=== PATIENT | female | born 1990 | race Caucasian/White ===

== ENCOUNTER → 2021-10-30 10:32 | Outpatient (CLI) | payer OTHER, SELFPAY ==
[2021-10-30 11:12] LABS: Add Manual Diff / Slide Review NO; Basophils Absolute Auto 0 /uL (0-100); Basophils Percent Auto 0.9 % (0-2); Eosinophils Absolute Auto 0 /uL (0-450); Eosinophils Percent Auto 1.2 % (2-4); Hematocrit 36.1 % (36-46); Hemoglobin 12.2 g/dL (12.0-16.0); Lymphocytes Absolute Auto 1100 /uL (1100-4500); Lymphocytes Percent Auto 27.1 % (25-40); Mean Corpuscular HGB Conc 33.8 % (30-36); Mean Corpuscular Hemoglobin 32.6 PG (26-34); Mean Corpuscular Volume 96.3 fL (80-100); Monocytes Absolute Auto 200 /uL (0-900); Monocytes Percent Auto 5.2 % (3-14); Neutrophils Absolute Auto 2800 /uL (1500-7000); Neutrophils Percent Auto 65.6 % (50-75); Platelet Count 225 X10^3/uL (150-400); Red Blood Cell Count 3.75 X10^6/uL (4.0-5.2); Red Cell Distribution Width 13.2 % (11.6-14.8); White Blood Cell Count 4.2 X10^3/uL (4.5-11.0)
[2021-10-30 12:02] LABS: Appearance Urine UA CLEAR; Bilirubin Urine UA NEGATIVE (NEGATIVE); Color Urine UA YELLOW; Glucose Urine UA TRACE g/dL (Negative); Ketones Urine UA TRACE (NEGATIVE); Leukocyte Esterase Urine UA TRACE (NEGATIVE); Nitrite Urine UA NEGATIVE (Negative); Occult Blood Urine UA TRACE-INTACT (Negative); Protein Urine UA 1+ (Negative); Urobilinogen Urine UA 0.2 E.U./dL (0.2)
[2021-10-30 12:26] LABS: Bacteria Urine Moderate (10-30); Culture Indicated Urine Cult Not Indicated; Mucus Urine 2+ (Negative); RBC Urine 1-5/HPF (0-5/HPF); Squamous Epithelial Cell Urine 5-10 /HPF (0-5/HPF); WBC Urine 0-1/HPF (0-5/HPF)
== END ==
PROVIDERS: PCP Family Medicine; Referring Provider Family Medicine; Visit Provider Family Medicine
DX: R39.198 Other difficulties with micturition (principal); R59.9 Enlarged lymph nodes, unspecified
CPT/HCPCS: 36415; 81001; 85025

== ENCOUNTER → 2021-11-27 09:30 | Outpatient (CLI) | payer OTHER, SELFPAY ==
[2021-11-27 10:32] LABS: Appearance Urine UA CLEAR; Bilirubin Urine UA 1+ (NEGATIVE); Color Urine UA YELLOW; Glucose Urine UA NEGATIVE (Negative); Ketones Urine UA TRACE (NEGATIVE); Leukocyte Esterase Urine UA NEGATIVE (NEGATIVE); Nitrite Urine UA NEGATIVE (Negative); Occult Blood Urine UA NEGATIVE (Negative); Protein Urine UA 1+ (Negative); Specific Gravity Urine UA >=1.030 (1.000-1.035); Urobilinogen Urine UA 0.2 E.U./dL (0.2)
[2021-11-27 10:34] LABS: pH Urine UA 5.5 (4.5-8.0)
[2021-11-27 10:36] LABS: Ictotest Urine Negative (Negative)
[2021-11-27 10:37] LABS: Bacteria Urine None Seen; Culture Indicated Urine Cult Not Indicated; Mucus Urine 3+ (Negative); RBC Urine None Seen (0-5/HPF); WBC Urine None Seen (0-5/HPF)
== END ==
PROVIDERS: PCP Family Medicine; Referring Provider Family Medicine; Visit Provider Family Medicine
DX: R39.198 Other difficulties with micturition (principal)
CPT/HCPCS: 81001

== ENCOUNTER → 2022-06-08 10:50 | Outpatient (CLI) | payer OTHER, SELFPAY ==
--- NOTE | 2022-06-08 10:51 | DI.MRI.S_ITS ---
PROCEDURE: MR TMJ WO CON INDICATIONS: eval TMJ TECHNIQUE: Axial T1 spin echo, coronal and sagittal PD fast spin echo through the temporomandibular joints, in both the closed- and open-mouth positions. COMPARISON: None. FINDINGS: Image quality: Excellent. Right: Joint is normally aligned on closed and open-mouth positioning. Articular disk demonstrates normal location and morphology. No bony erosions or osteophytes. Left: Joint is normally aligned on closed and open-mouth positioning. Articular disk demonstrates normal location and morphology. No bony erosions or osteophytes. IMPRESSION: TMJ study within normal limits. Dictated by: Andrew Costello M.D. on 06/09/2022 at 9:20 Approved by: Andrew Costello M.D. on 06/09/2022 at 9:23
== END ==
PROVIDERS: PCP Pediatrics; Referring Provider Family Medicine; Visit Provider Family Medicine
DX: S03.00XA Dislocation of jaw, unspecified side, initial encounter (principal)
CPT/HCPCS: 70336

== ENCOUNTER → 2022-08-20 15:51 | Outpatient (CLI) | payer OTHER, SELFPAY ==
[2022-08-20 17:42] LABS: Add Manual Diff / Slide Review NO; Basophils Absolute Auto 0 /uL (0-100); Basophils Percent Auto 0.3 % (0-2); Eosinophils Absolute Auto 100 /uL (0-450); Eosinophils Percent Auto 0.6 % (2-4); Hematocrit 37.2 % (36-46); Hemoglobin 13.1 g/dL (12.0-16.0); Lymphocytes Absolute Auto 1500 /uL (1100-4500); Lymphocytes Percent Auto 12.2 % (25-40); Mean Corpuscular HGB Conc 35.1 % (30-36); Mean Corpuscular Hemoglobin 33.5 PG (26-34); Mean Corpuscular Volume 95.5 fL (80-100); Monocytes Absolute Auto 500 /uL (0-900); Monocytes Percent Auto 4.1 % (3-14); Neutrophils Absolute Auto 10300 /uL (1500-7000); Neutrophils Percent Auto 82.8 % (50-75); Platelet Count 286 X10^3/uL (150-400); White Blood Cell Count 12.4 X10^3/uL (4.5-11.0)
[2022-08-20 18:47] LABS: HCG Quantitative /Beta subunit 219420 mIU/mL
[2022-08-22 10:08] LABS: Varicella IgG Antibody 1675 index (Immune >165)
[2022-08-22 20:45] LABS: HIV 1 & 2 Ab/Ag 4th Gen Combo NEGATIVE (NEGATIVE); Hep C Virus Ab w/Reflex Quant NEGATIVE s/c (NEGATIVE); Hepatitis B Surface Antigen NEGATIVE s/c (NEGATIVE); Rubella Antibody IgG 13.8 IU/mL (>15)
[2022-08-23 04:19] LABS: RPR Screen Non Reactive (Non Reactive)
== END ==
PROVIDERS: PCP Family Medicine; Referring Provider Obstetrics & Gynecology; Visit Provider Obstetrics & Gynecology
DX: O20.9 Hemorrhage in early pregnancy, unspecified (principal)
CPT/HCPCS: 36415; 80055; 84702; 86787; 86803; 86850; 86900; 86901; 87389

== ENCOUNTER → 2022-08-22 10:06 | Outpatient (CLI) | payer OTHER, SELFPAY ==
[2022-08-22 13:50] LABS: HCG Quantitative /Beta subunit 215880 mIU/mL
== END ==
PROVIDERS: PCP Family Medicine; Referring Provider Obstetrics & Gynecology; Visit Provider Obstetrics & Gynecology
DX: O20.9 Hemorrhage in early pregnancy, unspecified (principal)
CPT/HCPCS: 36415; 84702

== ENCOUNTER → 2022-09-04 13:48 | Outpatient (CLI) | payer OTHER, SELFPAY ==
[2022-09-04 19:20] LABS: Appearance Urine UA CLEAR; Bilirubin Urine UA NEGATIVE (NEGATIVE); Color Urine UA YELLOW; Glucose Urine UA NEGATIVE (Negative); Ketones Urine UA NEGATIVE (NEGATIVE); Leukocyte Esterase Urine UA TRACE (NEGATIVE); Nitrite Urine UA NEGATIVE (Negative); Occult Blood Urine UA TRACE-INTACT (Negative); Protein Urine UA NEGATIVE (Negative); Specific Gravity Urine UA 1.025 (1.000-1.035); Urobilinogen Urine UA 0.2 E.U./dL (0.2)
[2022-09-04 20:33] LABS: RBC Urine 0-1/HPF (0-5/HPF); Squamous Epithelial Cell Urine 0-1 /HPF (0-5/HPF); WBC Urine 0-1/HPF (0-5/HPF)
[2022-09-04 20:34] LABS: Amorphous Sediment Urine 1+; Bacteria Urine Occasional (0-1); Calcium Oxalate Crystals Urine Few
== END ==
PROVIDERS: PCP Family Medicine; Visit Provider Obstetrics & Gynecology
DX: Z34.81 Encounter for supervision of other normal pregnancy, first trimester (principal)
CPT/HCPCS: 81003; 81015; 87086

== ENCOUNTER → 2022-09-04 14:14 | Outpatient (CLI) | payer OTHER, SELFPAY | PROVIDERS: PCP Family Medicine; Referring Provider Obstetrics & Gynecology; Visit Provider Obstetrics & Gynecology | DX: Z34.81 Encounter for supervision of other normal pregnancy, first trimester (principal) | CPT/HCPCS: 36415; 81003; 81015; 87086 ==

== ENCOUNTER → 2022-11-04 11:29 | Outpatient (CLI) | payer OTHER, SELFPAY ==
[2022-11-06 20:59] LABS: AFP Value 108.5 ng/mL (.); Insulin Dep Diabetes No (.); OSBR Risk 1IN 2047 (.); Results Report (.); Test Results *Screen Negative* (.)
== END ==
PROVIDERS: PCP Family Medicine; Referring Provider Obstetrics & Gynecology; Visit Provider Obstetrics & Gynecology
DX: Z34.02 Encounter for supervision of normal first pregnancy, second trimester (principal); Z3A.16 16 weeks gestation of pregnancy
CPT/HCPCS: 36415; 82105

== ENCOUNTER → 2022-11-07 06:46 | Outpatient (CLI) | payer OTHER, SELFPAY ==
--- NOTE | 2022-11-07 06:48 | DI.US.S_ITS ---
PROCEDURE: US OB >= 14 WEEKS FETUS INDICATIONS: 20 Week Anatomy Scan OUTSIDE/PRIOR DATING DATA: Last menstrual period (LMP): 06/17/2022. LMP-based estimated date of delivery (GERALDO): 03/24/2023. First dating scan (date and location): 09/04/2022. Estimated date of delivery (GERALDO) from first dating scan: 03/22/2023. The calculations are made using the clinical GERALDO of 03/24/2023. TECHNIQUE: Real-time scanning was performed of the fetus, with image documentation and biometric measurements. COMPARISON: [facility], , OB <= 14 WEEKS FETUS, 09/04/2022, 14:08. FINDINGS: General: A single living intrauterine gestation is present. Presentation: Vertex. Placenta: Placental position is anterior , without previa. Amniotic fluid index: 12.8 cm, normal range is 5-24 cm. Single deepest vertical pocket is 3.5 cm. heart rate: 152 beats per minute. Maternal cervical canal: 3.5 cm long. Normal lower limit is 2.5 cm. biometrics: Biparietal diameter: 4.3 cm 19 weeks 1 day Head circumference: 17.5 cm 20 weeks 0 days Abdominal circumference: 14.8 cm 20 weeks 1 day Femur length: 3.1 cm 19 weeks 5 days Clinically estimated gestational age: 20 weeks 3 days Composite gestational age from present scan: 19 weeks 5 days Estimated weight and percentile: 319 g, 19th percentile Anatomic survey: Neuro: Ventricles are non-dilated at less than 10 mm. Cisterna magna is normal at 3-11 mm. Cerebellum is normal in size and morphology. Nuchal skin fold: Normal at less than 6 mm between 14-21 weeks gestational age. Face: Nose and lips, facial profile are normal. Spine: No evidence for spina bifida. Heart: 4-chambered heart is present, with normal ventricular outflow tracts. Diaphragm: Diaphragm is intact. Stomach: Left-sided stomach is present. Kidneys: No hydronephrosis. Normal is less than 5 mm in 2nd trimester, less than 7 mm in 3rd trimester. Cord: 3-vessel cord has orthotopic insertion. Bladder: Normal in size. Extremities: All 4 extremities identified. IMPRESSION: Single live intrauterine with clinically estimated gestational age of 20 weeks 3 days. Anatomy is within normal limits. We strive to produce accurate, complete, and clear reports of imaging services. To assist us in improving patient care, this report was composed using standard report templates and voice recognition software. Therefore, it may contain abnormal punctuation, insertions and/or omissions. Occasional wrong-word or sound-alike substitutions may occur. Though we review the report and make efforts to correct it, we do recommend that the report be read carefully in proper context to recognize any text inaccuracies. Dictated by: Monique Cross M.D. on 11/07/2022 at 12:28 Approved by: Monique Cross M.D. on 11/07/2022 at 12:34
--- NOTE | 2022-11-07 06:48 | DI.US.S_ITS ---
ULTRASOUND OF RIGHT AXILLA: 11/07/2022 CLINICAL: Right axillary lump x 6 months. Small prior to , larger now at 20wks gest. No prior exams were available for comparison. Color flow and real-time ultrasound of the right axilla were performed. Gard[place] scale images of the real-time examination were reviewed. No significant abnormalities were seen sonographically in the right axilla. IMPRESSION: NEGATIVE There is no sonographic evidence of malignancy. No mass or other abnormality demonstrated in the right axillary region of palpable concern. Clinical management is recommended. Precautionary post- follow-up could be obtained if the palpable abnormality persists. This exam was interpreted at Station ID: [id number]. Electronically Signed By: Edwin Casillas M.D. jr/:11/07/2022 08:21:15 letter sent: Normal Exam Ultrasound BI-RADS: 1 Negative
== END ==
PROVIDERS: PCP Family Medicine; Referring Provider Physician Assistant Medical; Visit Provider Physician Assistant Medical
DX: Z36.89 Encounter for other specified antenatal screening (principal); O99.891 Other specified diseases and conditions complicating pregnancy; R22.31 Localized swelling, mass and lump, right upper limb; Z3A.19 19 weeks gestation of pregnancy
CPT/HCPCS: 76811; 76882

== ENCOUNTER → 2022-12-30 09:21 | Outpatient (CLI) | payer OTHER, SELFPAY ==
[2022-12-30 10:53] LABS: Hematocrit 32.4 % (36-46); Hemoglobin 11.2 g/dL (12.0-16.0)
[2022-12-30 12:41] LABS: GTT (PREG) 1 Hour PP 50gm Dose 103 mg/dL (76-139)
== END ==
PROVIDERS: PCP Family Medicine; Referring Provider Obstetrics & Gynecology; Visit Provider Obstetrics & Gynecology
DX: Z34.82 Encounter for supervision of other normal pregnancy, second trimester (principal); Z3A.26 26 weeks gestation of pregnancy
CPT/HCPCS: 36415; 82950; 85014; 85018

== ENCOUNTER → 2023-03-04 12:00 | Outpatient (CLI) | payer OTHER, SELFPAY ==
[2023-03-05 08:06] LABS: Strep Grp B PCR NEG for Grp B Strep
== END ==
PROVIDERS: PCP Family Medicine; Visit Provider Obstetrics & Gynecology
DX: Z34.83 Encounter for supervision of other normal pregnancy, third trimester (principal); Z3A.37 37 weeks gestation of pregnancy
CPT/HCPCS: 87653

== ENCOUNTER 2023-03-14 13:14 | Inpatient (IN) | payer OTHER, SELFPAY ==
[2023-03-14 13:58] LABS: Add Manual Diff / Slide Review NO; Basophils Absolute Auto 100 /uL (0-100); Basophils Percent Auto 0.6 % (0-2); Eosinophils Absolute Auto 100 /uL (0-450); Eosinophils Percent Auto 0.6 % (2-4); Hematocrit 35.7 % (36-46); Hemoglobin 12.1 g/dL (12.0-16.0); Lymphocytes Absolute Auto 2200 /uL (1100-4500); Lymphocytes Percent Auto 17.8 % (25-40); Mean Corpuscular HGB Conc 33.9 % (30-36); Mean Corpuscular Hemoglobin 32.4 PG (26-34); Mean Corpuscular Volume 95.7 fL (80-100); Monocytes Absolute Auto 600 /uL (0-900); Monocytes Percent Auto 5.1 % (3-14); Neutrophils Absolute Auto 9300 /uL (1500-7000); Neutrophils Percent Auto 75.9 % (50-75); Platelet Count 315 X10^3/uL (150-400); Red Blood Cell Count 3.73 X10^6/uL (4.0-5.2); White Blood Cell Count 12.3 X10^3/uL (4.5-11.0)
--- NOTE | 2023-03-14 14:38 | PM.ANES.PR ---
Operative Date/Time/Diagnoses Date of procedure: 03/14/23 Time of procedure: 14:00 Pre-op diagnosis: labor pain
--- NOTE | 2023-03-14 14:38 | PM.AN.REGBLK ---
Regional Block Pre-procedure Procedure: Continuous Lumbar Epidural for L&D PMH/ROS narrative: Exam narrative: WNL Labs: Hct 35.7 % (36-46) L 03/14/23 13:40 Plt Count 315 X10^3/uL (150-400) 03/14/23 13:40 Medications: Current Medications Generic Name Dose Route Start Last Admin Trade Name Freq PRN Reason Stop Dose Admin Calcium Carbonate 1,000 mg 03/14/23 13:50 Calcium Carbonate 500 Mg Tab PO Q4HR PRN Dyspepsia Carboprost Tromethamine 250 mcg 03/14/23 13:50 Carboprost 250 Mcg/Ml Ampul IM Q90M PRN Bleeding Diphenhydramine HCl 25 mg 03/14/23 14:36 Diphenhydramine 50 Mg/Ml Vial IV Q10M PRN Pruritis Ephedrine Sulfate 10 mg 03/14/23 14:37 Ephedrine 50 Mg/Ml Vial IV 03/14/23 14:38 NOW ONE Fentanyl 50 mcg 03/14/23 13:50 Fentanyl 100 Mcg/2 Ml Inj IV Q1H PRN Pain, Moderate (4-6) Oxytocin/Lactated Ringer's 30 unit in 500 mls @ 200 mls/hr 03/14/23 13:50 Oxytocin Premix IV CONT PRN Bleeding Protocol Tranexamic Acid 1,000 mg/ 100 mls @ 200 mls/hr 03/14/23 13:50 Sodium Chloride IV NOW PRN Bleeding Lactated Ringer's 1,000 mls @ 100 mls/hr 03/14/23 14:00 Lactated Ringers IV CONT LAURENT FENT 2MCG/ML BUPIV 0.125% EPI 200 mcg in 100 mls @ 12 mls/hr 03/14/23 14:45 Fentanyl/Bupiv/Ns 2mcg/Ml - 0.125% EPIDURAL CONT LAURENT Lidocaine HCl 20 ml 03/14/23 13:50 Lidocaine 1% 20 Ml INJ INTRA-OP PRN Post Delivery Methylergonovine Maleate 0.2 mg 03/14/23 13:50 Methylergonovine 0.2 Mg Tablet PO Q6HR PRN Heavy Bleeding Methylergonovine Maleate 0.2 mg 03/14/23 13:50 Methylergonovine 0.2 Mg/Ml Vial IM NOW PRN Bleeding Misoprostol 800 mcg 03/14/23 13:50 Misoprostol 200 Mcg Tablet NC NOW PRN Bleeding Misoprostol 400 mcg 03/14/23 13:50 Misoprostol 200 Mcg Tablet SL NOW PRN Bleeding Nalbuphine HCl 2.5 mg 03/14/23 14:36 Nalbuphine 20 Mg/Ml Ampul IV Q10M PRN Pruritis Naloxone HCl 0.2 mg 03/14/23 13:50 Naloxone 0.4 Mg/Ml Vial IV Q2MIN PRN Opiate Reversal Ondansetron HCl 4 mg 03/14/23 13:50 Ondansetron 4 Mg/2 Ml Inj IV Q4HR PRN Nausea And Vomiting Oxytocin 10 unit 03/14/23 13:50 Oxytocin 10 Unit/Ml Vial IM NOW PRN Bleeding Allergies: Allergies Allergy/AdvReac Type Severity Reaction Status Date / Time No Known Drug Allergies Allergy Verified 03/12/23 14:46 Procedure Insertion date: 03/14/23 Insertion time: 14:15 Prep/Local: betadine x3 Interspace: L4-5 Patient position: sitting Needle: 18 gauge Brent Loss of resistance with: air LAN at (cm): 8 Catheter placed at SKIN (cm): 13 Catheter in SPACE (cm): 5 Initial Medications TEST DOSE time: 14:18 BOLUS DOSE time: 14:15 BOLUS DOSE (mL): 10 BOLUS DOSE med: 0.25% bupivacaine (Also fentanyl 100ml) Infusion INFUSION: 0.125% bupivacaine and with fentanyl 2 mcg/mL Initial rate (mL/hr): 12 Post-procedure Anesthesia time START: 13:57
[2023-03-14] MEDS: LACTATED RINGERS 1,000 ML 100 ML IV (14:45)
[2023-03-14 15:52] VITALS: BP 129/85
[2023-03-14] MEDS: OXYTOCIN PREMIX 30 UNIT/500 ML PLAST..BAG 200 UNIT IV (16:16)
--- NOTE | 2023-03-14 16:36 | P.HPOB_ITS ---
OB HPI Date/Time Date of admission: 03/14/23 Date Patient Seen: 03/14/23 Time Patient Seen: 16:36 History of Present Condition Chief complaint: OB CHECK GERALDO Calculator Estimated Delivery Date Method Current WG Current Estimate 03/24/23 LMP (Certain) 38w 4d Other Estimates 03/22/23 Ultrasound #1 38w 6d Estimated Gestational Age (weeks): 38+4 : 3 Para: 1 care: good care, initiated at week # (11), number of visits (10) and pounds weight gain (42) Dating criteria OB: LMP confirmed by 1st trimester US Ultrasounds: normal 1st trimester US and normal mid trimester US Obstetrical complications: other (First trimester bleed) Medical complications OB: none Preadmission Labs Last OB Lab Results: Blood Type A Positive 03/14/23 13:40 Antibody Screen Negative 03/14/23 13:40 Hematocrit 35.7 % (36-46) L 03/14/23 13:40 Hemoglobin 12.1 g/dL (12.0-16.0) 03/14/23 13:40 Hepatitis B Surface Antigen Negative s/c (NEGATIVE) 08/20/22 15 :54 Hepatitis C Antibody Negative s/c (NEGATIVE) 08/20/22 15:54 Rubella Antibody 13.8 IU/mL (>15) L 08/20/22 15:54 Varicella-Zoster IgG Antibody 1675 index (Immune >165) 08/20/22 15:54 Glucose 1 Hour 103 mg/dL (76-139) 12/30/22 09:30 Group B Streptococcus (PCR) Neg for grp b strep 03/04/23 12:00 -: Chlamydia screen: negative and Urine: negative -: PAP smear: Normal Genetic Screens: Cell-free DNA: Normal (nl female) and Alpha-fetoprotein: Normal External Labs -: Urine: negative Prior (ies) Past Pregnancies Del. Date GA/Weeks Labor Lgth Wt Sex Route Outcome Anesthesia Place Delv Breastfeed Preg Comp Name 01/26/19 6 spontaneous 03/29/20 38 5 5 lb 7 oz Female vaginal live - full simon [facility] 10 months [address] [place] Delivery Date: 01/26/19 Last Updated by: Bernadette Del Rosario RN Missed AB discovered ~8 wk, D&C @10 wk Delivery Date: 03/29/20 Last Updated by: Bernadette Del Rosario RN accessory placental lobe Evaluation Evaluation Baseline heart rate: 130 Variability: Average (6-10) monitor accelerations: Present Monitor Decelerations: Variable Contraction Frequency (minutes): 3 Uterine Contraction Intensity: Strong/Firm Status: Category ll Dilation (cm): 10 Effacement (%): 100 station: +2 [facility] Medical History (Updated 02/18/23 @ 15:50 by Fany Corbett MD) Abnormal Pap smear of cervix (~2011) Allergies (~1999) Anxiety (~1996) Chicken pox (~1992) Collar bone fracture (~2004) Cyclic vomiting syndrome Depression (~2005) Frequent UTI (~2007) Gastritis (~2014) Herpes simplex type 1 infection (~2011) Kidney infection (~2014) Migraines (~2001) Mixed anxiety and depressive disorder PTSD (post-traumatic stress disorder) Vertigo (~2017) Surgical History Anesthesia History of endoscopy [place] teeth removed (~2007) Family History (Updated 08/12/22 @ 15:21 by Bernadette Del Rosario RN) Father Hypertension Hyperlipidemia History of heart disease Mother Thyroid disease Grandfather History of heart disease Hyperlipidemia Hypertension COPD (chronic obstructive pulmonary disease) Congestive heart failure Heart attack Grandmother COPD (chronic obstructive pulmonary disease) Cyclic vomiting syndrome Grandfather History of heart disease Hyperlipidemia Hypertension Heart attack Grandmother Cancer Colon cancer Family/Other Brain cancer Social History marital status: number of children: 1 household members: spouse and children lives independently: Yes caregiver/support person: Yes housing: house pets and animals: Yes (2 dogs; aware of toxo precautions) education level: master's degree occupational status: unemployed current occupational exposures/hazards: No special margret needs: No travel history: over 6 months ago seatbelt use: always water heater temp set < 120 deg: Yes working smoke detector in home: Yes fire extinguisher in home: Yes carbon monox detector in home: Yes firearms in home: Yes firearms unloaded and locked: Yes do you feel safe at home: Yes Smoking Status: Never smoker Tobacco: How many years used: 3 second hand exposure: No alcohol intake: never substance use type: does not use during the past year weight has: remained stable well-balanced diet: daily or most days daily servings fruits/ve or more times/day caffeine: Yes (aware of 200mg limit) Type(s) of exercise: other and yoga frequency: 3-4 times per week Meds Home Medications and Allergies Home Medications Medication Instructions Recorded Confirmed Type promethazine 12.5 mg tablet 12.5 mg PO Q6H PRN per MD 10/07/21 03/14/23 History sumatriptan succinate 25 mg tablet See Rx Instructions PO .COMPLEX 10/07/21 03/14/23 Rx #30 tabs alprazolam 0.25 mg tablet (Xanax) 0.25 mg PO TID PRN anxiety #20 tabs 07/14/22 03/14/23 Rx ondansetron 4 mg disintegrating 4 mg PO Q6-8H PRN nausea and 08/04/22 03/14/23 Rx tablet vomiting #20 tabs prenat.vits,regis,rvk-vcsk-aovac 1 tab PO DAILY 08/12/22 03/14/23 History duloxetine 40 mg capsule,delayed 40 mg PO DAILY #90 caps 12/22/22 03/14/23 Rx release hydroxyzine HCl 25 mg tablet 25 mg PO BID PRN anxiety #30 tabs 12/22/22 03/14/23 Rx nortriptyline 50 mg capsule 100 mg PO DAILY #180 caps 12/22/22 03/14/23 Rx pantoprazole 40 mg tablet,delayed 40 mg PO DAILY #30 tabs 02/04/23 03/14/23 Rx release (Protonix) Allergies Allergy/AdvReac Type Severity Reaction Status Date / Time No Known Drug Allergies Allergy Verified 03/12/23 14:46 OB Exam Narrative Exam Narrative: Generally: Patient comfortable with epidural Fundal height: 39 cm Estimated weight: 7-1/2 lb Extremities: No edema Objective Labs 03/14/23 13:40 Labs: Laboratory Results - last 24 hr 03/14/23 03/14/23 13:40 13:40 WBC 12.3 H RBC 3.73 L Hgb 12.1 Hct 35.7 L MCV 95.7 MCH 32.4 MCHC 33.9 RDW 13.0 Plt Count 315 Neut % (Auto) 75.9 H Lymph % (Auto) 17.8 L [place] % (Auto) 5.1 Eos % (Auto) 0.6 L Baso % (Auto) 0.6 Neut # (Auto) 9300 H Lymph # (Auto) 2200 [place] # (Auto) 600 Eos # (Auto) 100 Baso # (Auto) 100 Blood Type A Positive Antibody Screen Negative Assessment and Plan Assessment and Plan Assessment and Plan narrative: Assessment: 32-year-old 3 para 1 at 38-,4/7 weeks gestation entering second stage of labor Comfortable with epidural Group B strep negative Plan: Begin pushing Expected management to spontaneous vaginal delivery Time Spent with Patient Total time spent with greater than 50% in coordination of care (as documented) at patient's floor/unit and/or counseling patient:: 25 - 35 minutes
--- NOTE | 2023-03-14 16:41 | PM.OBPRVD ---
Labor & Delivery Delivery date: 03/14/23 Intrapartal Events: Precipitous Labor < 3 hours and Intolerance (deep variable decelerations) Cervical ripening method: none Induction method: none Delivery monitor: external FHT and external uterine Route of delivery: vacuum extraction Indication for instrumentation: nonreassuring FHR tracing (deep variable decelerations) Episiotomy description: None L&D Laceration Description: None Quantitative Blood Loss: 100 Anesthesia Type: Epidural Complications: None Narrative: Patient complete and pushed with 2 contractions. At the end of the second contraction a vacuum was applied due to deep variable decelerations with pushing. With 1 pull the vertex delivered over an intact perineum in the [place] position, at 4:14 p.m.. A nuchal cord x1 was reduced on the perineum. The remainder of the body delivered without difficulty and was placed on mom's abdomen. Pitocin was given in the IV fluid. The cord was double clamped and cut after it stopped pulsing. Cord bloods were obtained. The placenta delivered intact with a three-vessel cord at 4:22 p.m.. Fundus was massaged to firm. The perineum and vagina were inspected and there were no lacerations. QBL 100 cc. Apgars 8 at 1 minute and 9 at 5 minutes. . Epidural analgesia. Mom and infant stable to recovery. [place] Baby 1: Infant gender: Female Presentation: vertex Position: Left Occiput Anterior Placenta delivery description: Spontaneous Cord Vessel Description: 3 Vessels, Nuchal Cord (x 1) and Reduced (on the perineum) score (1 min): 8 score (5 min): 9 weight: 7 lb 4 oz Plan for aftercare: Routine care
[2023-03-14] MEDS: LANOLIN OINT 7 GM 1 APPLIC TOP (21:54)
[2023-03-14] MEDS: DERMOPLAST SPRAY 20% 60 ML 1 SPRAY TOP (21:54)
[2023-03-14] MEDS: IBUPROFEN 600 MG TABLET PO (22:00)
[2023-03-15] MEDS: IBUPROFEN 600 MG TABLET PO ×2 (03:58→09:55)
[2023-03-15 06:11] LABS: Hemoglobin 10.8 g/dL (12.0-16.0)
--- NOTE | 2023-03-15 09:53 | PM.AN.REGBLK ---
Regional Block Pre-procedure Labs: Hct 31.0 % (36-46) L 03/15/23 06:00 Plt Count 315 X10^3/uL (150-400) 03/14/23 13:40 Medications: Current Medications Generic Name Dose Route Start Last Admin Trade Name Delfina PRN Reason Stop Dose Admin Acetaminophen 650 mg 03/14/23 18:23 Acetaminophen 325 Mg Tablet PO Q6HR PRN Pain, Mild (1-3) Benzocaine 1 spray 03/14/23 18:23 03/14/23 21:54 Dermoplast [place] 20% 60 Ml TOP 1 spray Q1HR PRN Administration perineal pain Carboprost Tromethamine 250 mcg 03/14/23 18:23 Carboprost 250 Mcg/Ml Ampul IM Q90MIN PRN Bleeding Docusate Sodium 100 mg 03/15/23 09:00 Docusate 100 Mg Capsule PO DAILY LAURENT Emollient Ointment 1 applic 03/14/23 18:23 03/14/23 21:54 Lanolin Oint 7 Gm TOP 1 applic PRN PRN Administration Tenderness Oxytocin/Lactated Ringer's 30 unit in 500 mls @ 200 mls/hr 03/14/23 18:23 Oxytocin Premix IV CONT PRN Bleeding Protocol Ibuprofen 600 mg 03/14/23 18:23 03/15/23 03:58 Ibuprofen 600 Mg Tablet PO 600 mg Q6HR PRN Administration Pain, Mild (1-3) Methylergonovine Maleate 0.2 mg 03/14/23 18:23 Methylergonovine 0.2 Mg/Ml Vial IM NOW PRN Bleeding Methylergonovine Maleate 0.2 mg 03/14/23 18:23 Methylergonovine 0.2 Mg Tablet PO Q6HR PRN Heavy bleeding Misoprostol 400 mcg 03/14/23 18:23 Misoprostol 200 Mcg Tablet SL NOW PRN Bleeding Misoprostol 1,000 mcg 03/14/23 18:23 Misoprostol 200 Mcg Tablet DE NOW PRN Bleeding Misoprostol 800 mcg 03/14/23 18:23 Misoprostol 200 Mcg Tablet DE NOW PRN Bleeding Naloxone HCl 0.2 mg 03/14/23 18:23 Naloxone 0.4 Mg/Ml Vial IV Q2MIN PRN Opiate Reversal Oxytocin 10 unit 03/14/23 18:23 Oxytocin 10 Unit/Ml Vial IM NOW PRN Bleeding Vit/Calcium/Iron/Folic Ac 1 tab 03/15/23 09:00 Vit,Calc/Iron/Folic 1 Tablet PO DAILY LAURENT Rho Immune Globulin 1,500 unit 03/14/23 18:23 Rho(D) Immune Globulin 1,500 Unit Syringe IM NOW PRN Mom Rh neg, Infant Rh pos Allergies: Allergies Allergy/AdvReac Type Severity Reaction Status Date / Time No Known Drug Allergies Allergy Verified 03/12/23 14:46 Post-procedure Anesthesia time END: 16:15 Post-procedure Anesthesia Assessment: Yes CV function: HR/BP stable, Yes Resp function: RR/sat/airway adequate, Yes Post-op hydration adequate, Yes Pain control adequate, Yes Nausea & vomiting absent, Yes Temperature > 36 C and Yes Mental status appropriate
[2023-03-15] MEDS: PRENATAL VIT,CALC/IRON/FOLIC 1 TABLET 1 TAB PO (09:55)
[2023-03-15 14:33] VITALS: BP 122/81; PULSE 100; RESP 14; TEMP 36.8
--- NOTE | 2023-03-21 20:25 | PM.OBDS.1 ---
Discharge Providers Provider Date of admission: 03/14/23 13:14 Discharge Date: 03/15/23 Primary care physician: Boogie Bradley MD Discharge provider: Paulette Walton MD Summary Hospital Course Date Patient Seen: 03/15/23 Time Patient Seen: 11:30 Diagnoses: 38-,4/7 weeks gestation Precipitous labor and delivery Epidural analgesia Spontaneous vaginal delivery Nuchal cord x1 Hospital Course: Patient is a 32-year-old 3 para 1 at 38-,4/7 weeks gestation who presented to labor and delivery on March 14, 2023 with spontaneous rupture of membranes and was 4 cm on admission. She received an epidural for pain management. She progressed to complete dilation and had a spontaneous vaginal delivery at 16: 14. Her course was unremarkable. She was discharged home on March 15, 2023. She will follow-up at 6 weeks. Peripartum Data Infant Delivery Method: Natural Vaginal Laceration Description: None Episiotomy description: None Procedures: Epidural analgesia Spontaneous vaginal delivery complications: none [place] 1: Gender: Female Disposition of : home Status at Discharge Cognitive/behavioral status at discharge: oriented Functional status at discharge: independent ambulation Overall status at discharge: patient is progressing back to baseline Time Spent with Patient Time attestation: Total time spent providing and/or coordinating discharge services: Time spent: Less than 30 minutes Objective Labs 03/15/23 06:00 Exam Narrative Exam Narrative: Generally: Patient is sitting up in bed, no acute distress Fundus: Firm at U -1 Extremities: Negative Homans, no edema Discharge Plan Discharge Plan Patient Disposition: Home Provider Discharge Comment: Call with fever, chills or bleeding vaginally more than a pad in an hour Continue vitamins Push oral fluids Ibuprofen 600mg every 6 hours as needed Discharge orders & Medications Prescriptions: Continued nortriptyline 50 mg capsule 100 mg PO DAILY Qty: 180 3RF hydroxyzine HCl 25 mg tablet 25 mg PO BID PRN (Reason: anxiety) Qty: 30 2RF duloxetine 40 mg capsule,delayed release(DR/EC) 40 mg PO DAILY Qty: 90 3RF prenat.vits,regis,fez-ihol-iinae Tablet 1 tab PO DAILY Discontinued alprazolam [Xanax] 0.25 mg tablet 0.25 mg PO TID PRN (Reason: anxiety) Qty: 20 0RF Hold Instructions: ondansetron 4 mg tablet,disintegrating 4 mg PO Q6-8H PRN (Reason: nausea and vomiting) Qty: 20 2RF pantoprazole [Protonix] 40 mg tablet,delayed release (DR/EC) 40 mg PO DAILY Qty: 30 3RF promethazine 12.5 mg tablet 12.5 mg PO Q6H PRN (Reason: per MD) sumatriptan succinate 25 mg tablet See Rx Instructions PO .COMPLEX Qty: 30 2RF Rx Instructions: take 1 tab at onset of headache; if no relief may repeat 1 tab after at least 2 hrs; max = 4 tabs/24 hr PO Follow up/Referrals: Paulette Walton MD [Physician] - Boogie Bradley MD [Primary Care Provider] - (6 week follow up. Please call Thursday to schedule.) Diet/Activity/Treatments Diet: Regular Activity: Nothing in the vagina for 6 weeks Skin/Wound/Dressing Care Report to your healthcare provider any signs of infection, such as:: chills, fever, increased pain and unusual drainage Visit Report/Discharge Packet Instructions: DI for Labor and Delivery, Vaginal , DI for Depression Stand Alone Forms: Patient Portal/API, Stroke Signs & Symptoms Discharge Data Primary Care Provider: Boogie Bradley Discharges patient from system. Discharge Date/Time: 03/15/23 13:57
== END 2023-03-15 13:57 | disposition home or self-care (01) | DRG 807 ==
PROVIDERS: Admitting Provider Obstetrics & Gynecology; PCP Family Medicine; Referring Provider Obstetrics & Gynecology; Visit Provider Obstetrics & Gynecology
DX: O62.3 Precipitate labor (principal); Z37.0 Single live birth; O76 Abnormality in fetal heart rate and rhythm complicating labor and delivery; Z3A.38 38 weeks gestation of pregnancy
CPT/HCPCS: 36415; 59050; 59400; 59409; 84112; 85014; 85018; 85025; 86850; 86900; 86901; G0378; G0379; J2590

== ENCOUNTER → 2023-06-22 15:30 | Outpatient (CLI) | payer OTHER, SELFPAY ==
[2023-06-22 15:45] LABS: Add Manual Diff / Slide Review NO; Basophils Absolute Auto 100 /uL (0-100); Basophils Percent Auto 1.3 % (0-2); Eosinophils Absolute Auto 100 /uL (0-450); Eosinophils Percent Auto 2.2 % (2-4); Hematocrit 35.8 % (36-46); Hemoglobin 12.3 g/dL (12.0-16.0); Lymphocytes Absolute Auto 1800 /uL (1100-4500); Lymphocytes Percent Auto 34.7 % (25-40); Mean Corpuscular HGB Conc 34.4 % (30-36); Mean Corpuscular Hemoglobin 32.7 PG (26-34); Mean Corpuscular Volume 95.2 fL (80-100); Monocytes Absolute Auto 300 /uL (0-900); Monocytes Percent Auto 6.4 % (3-14); Neutrophils Absolute Auto 2900 /uL (1500-7000); Neutrophils Percent Auto 55.4 % (50-75); Platelet Count 291 X10^3/uL (150-400); Red Blood Cell Count 3.76 X10^6/uL (4.0-5.2); White Blood Cell Count 5.2 X10^3/uL (4.5-11.0)
[2023-06-22 16:04] LABS: Alanine Aminotransferase 18 IU/L (<35); Albumin 4.4 g/dL (3.5-5.0); Albumin Globulin Ratio 1.6 (1.0-2.8); Alkaline Phosphatase 69 U/L (38-126); Aspartate Aminotransferase 24 IU/L (14-36); BUN Creatinine Ratio 16.9 (6-22); Bilirubin Total 0.2 mg/dL (0.2-1.3); Blood Urea Nitrogen 13 mg/dL (7-17); Calcium 9.2 mg/dL (8.4-10.2); Carbon Dioxide 29 mmol/L (22-32); Chloride 102 mmol/L (98-107); Estimated Glomerular Filt Rate > 60 mL/min (>60); Globulin 2.8 g/dL (1.7-4.1); Glucose 76 mg/dL (70-100); HEMOLYSIS < 15 (0-50); Sodium 139 mmol/L (137-145); Total Protein 7.2 g/dL (6.3-8.2)
[2023-06-22 16:35] LABS: TSH w/ Reflex to FT4 1.99 uIU/mL (0.47-4.68)
== END ==
PROVIDERS: PCP Family Medicine; Referring Provider Psychiatry & Neurology Psychiatry; Visit Provider Psychiatry & Neurology Psychiatry
DX: F43.10 Post-traumatic stress disorder, unspecified (principal); F41.0 Panic disorder [episodic paroxysmal anxiety]; F41.1 Generalized anxiety disorder; F33.41 Major depressive disorder, recurrent, in partial remission
CPT/HCPCS: 36415; 80053; 84443; 85025; 99214

== ENCOUNTER → 2024-08-04 15:11 | Outpatient (CLI) | payer OTHER, SELFPAY ==
--- NOTE | 2024-08-04 15:13 | DI.RAD.S_ITS ---
PROCEDURE: XR HAND RT MIN 3V INDICATIONS: bilateral hand and foot pain/swelling TECHNIQUE: 3 views of the hand(s) acquired. COMPARISON: None. FINDINGS: Bones: Ulnar minus anomaly noted. Joints: Mild degenerative change present in the STT and 1st CMC joints. The MCP and PIP joints show mild joint space narrowing and synovial swelling most prominent 2nd and 3rd MCP joint. There is also periarticular osteoporosis. Soft tissues: No soft tissue abnormality. 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 Please correlate with arthritic serologies Mild degeneration Dictated by: Jules Pruett M.D. on 08/05/2024 at 9:46 Approved by: Jules Pruett M.D. on 08/05/2024 at 9:48
--- NOTE | 2024-08-04 15:13 | DI.RAD.S_ITS ---
PROCEDURE: XR HAND LT MIN 3V INDICATIONS: bilateral hand and foot pain/swelling TECHNIQUE: 3 views of the hand(s) acquired. COMPARISON: None. FINDINGS: Bones: Ulnar minus anomaly noted. Joints: Mild degenerative change present distal radial ulnar, STT and 1st CMC joints. The MCP joints show joint space narrowing and mild synovial swelling most prominent in the 2nd MCP region. There is also minimal synovial swelling and joint space narrowing of the PIP joints. In addition, periarticular osteoporosis noted in all joints. Soft tissues: No soft tissue abnormality. 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 Please correlate with inflammatory serologies Degenerative change Ulnar minus variant Dictated by: Jules Pruett M.D. on 08/05/2024 at 9:44 Approved by: Jules Pruett M.D. on 08/05/2024 at 9:46
--- NOTE | 2024-08-04 15:13 | DI.RAD.S_ITS ---
PROCEDURE: XR FOOT LT MIN 3V INDICATIONS: bilateral hand and foot pain/swelling TECHNIQUE: 3 views of the foot were acquired. COMPARISON: None. FINDINGS: Bones: There are no osseous abnormalities Joints: The joint spaces are normal in width and alignment without arthritic change. Soft tissues: Mild diffuse soft swelling noted IMPRESSION: Mild diffuse soft tissue swelling Dictated by: Jules Pruett M.D. on 08/05/2024 at 9:52 Approved by: Jules Pruett M.D. on 08/05/2024 at 9:53
--- NOTE | 2024-08-04 15:13 | DI.RAD.S_ITS ---
PROCEDURE: XR FOOT RT MIN 3V INDICATIONS: bilateral hand and foot pain/swelling TECHNIQUE: 3 views of the foot were acquired. COMPARISON: None. FINDINGS: Bones: There are no osseous abnormalities Joints: The joint spaces are normal in width and alignment without arthritic change. Soft tissues: Mild diffuse soft swelling noted. IMPRESSION: Mild diffuse soft tissue swelling Dictated by: Jules Pruett M.D. on 08/05/2024 at 9:58 Approved by: Jules Prutet M.D. on 08/05/2024 at 9:59
[2024-08-04 16:32] LABS: C-Reactive Protein Quant < 0.5 mg/dL (<1.0)
[2024-08-04 16:37] LABS: Rheumatoid Factor < 8.6 IU/mL (<12.0)
[2024-08-09 16:08] LABS: ANA Screen, IFA Positive (.)
== END ==
PROVIDERS: PCP Family Medicine; Referring Provider Family Medicine; Visit Provider Family Medicine
DX: L40.9 Psoriasis, unspecified (principal); M79.89 Other specified soft tissue disorders; M21.832 Other specified acquired deformities of left forearm; M24.9 Joint derangement, unspecified
CPT/HCPCS: 36415; 73130; 73630; 86038; 86140; 86430

== ENCOUNTER → 2024-09-07 12:11 | Outpatient (CLI) | payer OTHER, SELFPAY ==
[2024-09-09 17:36] LABS: CCP Antibodies IgG/IgA 4 units (0-19)
== END ==
PROVIDERS: PCP Family Medicine; Referring Provider Family Medicine; Visit Provider Family Medicine
DX: L40.9 Psoriasis, unspecified (principal); M79.89 Other specified soft tissue disorders; F41.1 Generalized anxiety disorder; F41.0 Panic disorder [episodic paroxysmal anxiety]; F43.10 Post-traumatic stress disorder, unspecified; F33.41 Major depressive disorder, recurrent, in partial remission
CPT/HCPCS: 36415; 86200; 99214

== ENCOUNTER 2025-03-03 13:17 | Emergency (ER) | payer OTHER, SELFPAY ==
[2025-03-03 13:47] VITALS: BP 139/90; PULSE 85; RESP 16; TEMP 36.8; O2SAT 100; BMI 22.1
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
--- NOTE | 2025-03-03 14:10 | DI.CT.S_ITS ---
PROCEDURE: CT FACIAL BONES WO CON INDICATIONS: right side jaw pain pop feels misaligned x 2 days TECHNIQUE: Noncontrast 2.5 mm thick axial images acquired from the mandible through the frontal sinuses, with coronal and sagittal reformatting. For radiation dose reduction, the following was used: automated exposure control, adjustment of mA and/or kV according to patient size. COMPARISON: None. FINDINGS: Image quality: Excellent. Bones and teeth: Orbital lozoya are intact. Sinus lozoya show no fracture or deformity. Nasal bones and septum are intact. Visualized portions of the mandible demonstrate no fractures or subluxation. Asymmetric [id number] right temporomandibular joint osteoarthritic changes are seen with joint space narrowing and flattening of the right mandibular condyle. Zygomatic arches are intact. Pterygoid plates are intact. Visualized portions of the skull base and auditory canals are intact. Sinuses: Paranasal sinuses are aerated, without fluid levels, mucosal thickening, or mucoceles. Mastoid air cells are aerated. Soft tissues: No edema, masses, or fluid collections. No enlarged lymph nodes. No soft tissue lacerations or debris. Vascular: Visualized vascular structures appear normal in the absence of contrast. Bony vascular foramina and canals are intact. IMPRESSION: 1. Asymmetric [id number]-[id number] right temporomandibular joint osteoarthritis as described above. No fracture or dislocation. No suspicious bony lesions. 2. No gross facial soft tissue abnormalities. Bilateral paranasal sinuses are well aerated. Dictated by: Mario Augustin M.D. on 03/03/2025 at 14:40 Approved by: Mario Augustin M.D. on 03/03/2025 at 14:44
[2025-03-03] MEDS: KETOROLAC 30 MG/ML VIAL IM (14:32)
[2025-03-03 15:19] VITALS: BP 113/83; PULSE 71; RESP 18; TEMP 36.9; O2SAT 99
== END 2025-03-03 15:20 | disposition home or self-care (01) ==
PROVIDERS: Emergency Provider Physician Assistant; PCP Family Medicine
DX: M19.09 Primary osteoarthritis, other specified site (principal)
CPT/HCPCS: 70486; 96372; 99283; 99284; J1885

== ENCOUNTER → 2025-07-26 14:05 | Outpatient (CLI) | payer OTHER, SELFPAY ==
--- NOTE | 2025-07-26 14:06 | DI.RAD.S_ITS ---
PROCEDURE: XR HAND LT MIN 3V INDICATIONS: bilateral hand and feet swelling and pain TECHNIQUE: 3 views of the hand(s) acquired. COMPARISON: [facility], CR, XR HAND LT MIN 3V, 08/04/2024, 15:25. [facility], CR, XR HAND RT MIN 3V, 07/26/2025, 13:11. [facility], CR, XR HAND RT MIN 3V, 08/04/2024, 15:25. FINDINGS: Bones: No fractures or dislocations. Carpal bones are normally aligned. No suspicious bony lesions. Mild ulnar variance. Mild 1st CMC and STT joint degeneration. Minimal joint space narrowing of the interphalangeal joints. Mild periarticular osteoporosis. Soft tissues: No suspicious soft tissue calcifications. IMPRESSION: Mild degenerative changes as described above. Stable compared to prior exam. Recommend correlation with inflammatory serologies peer Dictated by: Massimo Gomez M.D. on 07/26/2025 at 21:39 Approved by: Massimo Gomez M.D. on 07/26/2025 at 21:40
--- NOTE | 2025-07-26 14:06 | DI.RAD.S_ITS ---
PROCEDURE: XR FOOT LT MIN 3V INDICATIONS: bilateral hand and feet swelling and pain TECHNIQUE: 3 views of the foot were acquired. COMPARISON: [facility], CR, XR FOOT RT MIN 3V, 08/04/2024, 15:25. [facility], CR, XR FOOT LT MIN 3V, 08/04/2024, 15:25. FINDINGS: Bones: No fractures or dislocations. No suspicious bony lesions. Soft tissues: No tibiotalar joint effusion. Achilles tendon appears normal. IMPRESSION: No acute bony abnormality. Dictated by: Massimo Gomez M.D. on 07/26/2025 at 21:41 Approved by: Massimo Gomez M.D. on 07/26/2025 at 21:41
--- NOTE | 2025-07-26 14:06 | DI.RAD.S_ITS ---
PROCEDURE: XR HAND RT MIN 3V INDICATIONS: bilateral hand and feet swelling and pain TECHNIQUE: 3 views of the hand(s) acquired. COMPARISON: [facility], CR, XR HAND RT MIN 3V, 08/04/2024, 15:25. FINDINGS: Bones: No fractures or dislocations. Stable mild degenerative changes in the STT and 1st CMC joints. Minimal interphalangeal joint degeneration. Mild radiocarpal joint degeneration. Mild negative ulnar variance. Carpal bones are normally aligned. No suspicious bony lesions. Soft tissues: No suspicious soft tissue calcifications. IMPRESSION: Mild degenerative changes as described above. Recommend correlation with arthritic serologies. Dictated by: Massimo Gomez M.D. on 07/26/2025 at 20:46 Approved by: Massimo Gomez M.D. on 07/26/2025 at 21:38
--- NOTE | 2025-07-26 14:06 | DI.RAD.S_ITS ---
PROCEDURE: XR FOOT RT MIN 3V INDICATIONS: bilateral hand and feet swelling and pain TECHNIQUE: 3 views of the foot were acquired. COMPARISON: [facility], CR, XR FOOT RT MIN 3V, 08/04/2024, 15:25. FINDINGS: Bones: No fractures or dislocations. No suspicious bony lesions. Soft tissues: No tibiotalar joint effusion. Achilles tendon appears normal. IMPRESSION: No acute bony abnormality. Dictated by: Massimo Gomez M.D. on 07/26/2025 at 21:40 Approved by: Massimo Gomez M.D. on 07/26/2025 at 21:41
[2025-07-26 16:35] LABS: Uric Acid 4.2 mg/dL (2.5-6.2)
[2025-08-01 09:11] LABS: ANA Screen, IFA Positive (.)
== END ==
PROVIDERS: PCP Family Medicine; Referring Provider Family Medicine; Visit Provider Family Medicine
DX: M79.89 Other specified soft tissue disorders (principal); M26.609 Unspecified temporomandibular joint disorder, unspecified side; L40.9 Psoriasis, unspecified
CPT/HCPCS: 36415; 73130; 73630; 84550; 85651; 86038; 86140